=== PATIENT | female | born 1960 | race Caucasian/White ===

== ENCOUNTER → 2016-11-09 | Outpatient (CLI) | payer MEDICARE ==
[2014-12-24 10:57] VITALS: BP 102/69
[~2016-11-09] MED LIST: ALBU0.63 NEB; ALPR2TAB2 PO; ASCO100T4 PO; ASPI81TA44 PO; CHOL20002 PO; DOCU50CA6 PO; DOXY100T PO; DULO30CA2 PO; ESTR0.753 PO; ESTR0.9T PO; ESTR1TAB15 PO; FLUT1DIS3 IH; HYDR-2680 PO; IBUP800T19 PO; LEVO200T5 PO; LORA1TAB PO; MECO10002 PO; METO10TA81 PO; METO25TA4 PO; MIRT15TA PO; MIRT30TA PO; OMEG-33 PO; OMEP20TA8 PO; OXYB5TAB7 PO; PHEN37.598 PO; POTA10TA12 PO; PRAZ1CAP2 PO; PROM118S2 PO; SERT100T PO; SIMV20TA3 PO; SPIR1TAB PO; TIOT18CA IH; VARE1TAB21 PO
[2016-11-09 18:00] LABS: BASO # 0.1 x10^3/uL (0.0-0.2); BASO % 1 % (0-3); EOS # 0.1 x10^3/uL (0.0-0.7); EOS % 1 % (0-3); HEMATOCRIT 39.6 % (36.0-47.0); HEMOGLOBIN 13.3 g/dL (12.0-15.5); LYMPH % 23 % (24-48); MEAN CORPUSCULAR HEMOGLOBIN 30 pg (25-35); MEAN CORPUSCULAR HGB CONC 34 g/dL (31-37); MEAN CORPUSCULAR VOLUME 90 fL (79-100); MONO # 0.9 x10^3/uL (0.0-1.1); MONO % 11 % (0-9); NEUT # 5.4 x10^3uL (1.8-7.7); NEUT % 64 % (31-73); PLATELET COUNT 279 x10^3/uL (140-400); RED CELL DISTRIBUTION WIDTH 12.9 % (11.5-14.5); WHITE BLOOD COUNT 8.5 x10^3/uL (4.0-11.0)
[2016-11-09 18:03] LABS: CREATININE 0.8 mg/dL (0.6-1.0); GFR 73.9
== END | disposition home or self-care (01) ==
LOC: LAB 17:02
PROVIDERS: ATTEND Family Medicine
DX: R60.1 Generalized edema (principal)
CPT/HCPCS: 36415; 80048; 82550; 83880; 84484; 85027

== ENCOUNTER → 2016-12-04 | Outpatient (CLI) | payer MEDICARE ==
[2014-12-24 10:57] VITALS: BP 102/69
[2016-12-04 16:17] LABS: CALCIUM 8.4 mg/dL (8.5-10.1); CREATININE 0.9 mg/dL (0.6-1.0); GFR 64.5; MAGNESIUM 1.6 mg/dL (1.8-2.4); POTASSIUM 3.7 mmol/L (3.5-5.1)
== END | disposition home or self-care (01) ==
LOC: LAB 15:37
PROVIDERS: ATTEND Nurse Practitioner
DX: R60.0 Localized edema (principal)
CPT/HCPCS: 36415; 80048; 83735; 83880

== ENCOUNTER 2018-07-16 06:24 | Emergency (ER) | payer MEDICARE ==
[~2018-07-16] VITALS: Ht 157.5 cm; Wt 92.5 kg
[~2018-07-16 06:24] MED LIST changes: -ASPI81TA44 PO; +ASPI81TA59 PO; +LORA-254 PO; -LORA1TAB PO; -PROM118S2 PO; +PROM118S5 PO
--- NOTE | 2018-07-16 07:06 | PHYS DOC ---
Past History Past Medical History: A-Fib, Anemia, Arthritis, COPD, CVA, Depression, Fibromyalgia, Hypertension, Other Past Surgical History: Appendectomy, Cholecystectomy, Hysterectomy, Other Alcohol Use: None Drug Use: None Adult General Chief Complaint Chief Complaint: FEVER HPI HPI 57-year-old female presents with fever. The patient had a spider bite in early June and was diagnosed with MSSA. She has been giving Ancef every 8 hours by IV infusion her PICC line. She presents this morning because she had a fever of 104 at home. This is the 4th day she noticed she was feeling more feverish. She does have a cough. She denies shortness of breath. She has generalized aches and chills. She has not taken anything for the fever since yesterday when she took Tylenol. Patient has a history of COPD. She takes breathing treatments 4 times a day. Review of Systems Review of Systems Constitutional: Fever and chills[] Eyes: Denies change in visual acuity, redness, or eye pain [] HENT: Denies nasal congestion or sore throat [] Respiratory: Cough without shortness of breath [] Cardiovascular: No additional information not addressed in HPI [] GI: Denies abdominal pain, nausea, vomiting, bloody stools or diarrhea [] : Denies dysuria or hematuria [] Musculoskeletal: Denies back pain or joint pain [] Integument: Denies rash or skin lesions [] Neurologic: Denies headache, focal weakness or sensory changes [] Endocrine: Denies polyuria or polydipsia [] All other systems were reviewed and found to be within normal limits, except as documented in this note. Allergies Allergies Allergies Coded Allergies Type Severity Reaction Last Updated Verified latex Allergy Intermediate 12/22/14 Yes pregabalin Allergy Mild swelling 10/16/13 Yes Physical Exam Physical Exam Constitutional: Well developed, well nourished, no acute distress, non-toxic appearance. [] HENT: Normocephalic, atraumatic, bilateral external ears normal, oropharynx moist, no oral exudates, nose normal. [] Eyes: PERRLA, EOMI, conjunctiva normal, no discharge. [] Neck: Normal range of motion, no tenderness, supple, no stridor. [] Cardiovascular:Heart rate regular rhythm, no murmur [] Lungs & Thorax: Bilateral breath sounds clear to auscultation but diminished[] Abdomen: Bowel sounds normal, soft, no tenderness, no masses, no pulsatile masses. [] Skin: Warm, dry, no erythema, no rash. [] Back: No tenderness, no CVA tenderness. [] Extremities: PICC in the right arm[] Neurologic: Alert and oriented X 3, normal motor function, normal sensory function, no focal deficits noted. [] Psychologic: Affect normal, judgement normal, mood normal. [] Current Patient Data Vital Signs Vital Signs Date Time Temp Pulse Resp B/P (MAP) Pulse Ox O2 Delivery O2 Flow Rate FiO2 07/16/18 06:30 101.0 73 20 94 Room Air EKG EKG Sinus tachycardia, rate 113, normal axis, no ST elevations or depressions.[] Radiology/Procedures Radiology/Procedures [] Impressions: Chest, 2 views, 07/16/2018: HISTORY: Fever, cough, sepsis Comparison is made to a study from 10/16/2013. A right PICC extends into the superior vena cava. The heart size and pulmonary vascularity are normal. No pulmonary infiltrate is seen. There is no evidence of pleural fluid. IMPRESSION: 1. The right PICC is in satisfactory position. 2. No acute cardiopulmonary abnormality is detected. Electronically signed by: Miguel Galloway MD (07/16/2018 7:37 AM) [facility] DICTATED AND SIGNED BY: MIGUEL GALLOWAY MD DATE: 07/16/18 0738 CC: LAURE WADE DO; CELIA WILKS MD Course & Med Decision Making Course & Med Decision Making Pertinent Labs and Imaging studies reviewed. (See chart for details) The patient is tachycardic at 115, she has a fever of 103, and is already on antibiotics for skin infection. She meets sepsis criteria. We will give her 30 mL/kg of normal saline, order to do blood cultures, and place her on vancomycin and Zosyn. The patient's white count is 2.1. Hemoglobin 9.2 I discussed these results with the patient and she is not on chemotherapy. She is not an IV drug user. She has not been told she has a low white count in the past. She has not been anemic in the past. Review of her chart shows some white counts that are low normal, not less than 4. Her hemoglobin has not been this low before. Her chest x-ray does not show pneumonia. Her influenza was negative. The patient has been on the Ancef for more than 20 days. Urinalysis is pending. At this point, I am assuming the skin infection developed resistance to the Ancef, though another source of infection is not excluded. The patient tells me that she did have a couple of teeth removed within the last 1 month. EKG shows sinus tachycardia Discussed the patient with Dr. Villasenor and he would like the patient transferred to [facility] and admitted under his name. The patient is in agreement with this plan. She will go by ambulance. Greater than 35 minutes of critical care time was spent on this patient exclusive of other billable procedures. [] Dragon Disclaimer Dragon Disclaimer This electronic medical record was generated, in whole or in part, using a voice recognition dictation system. Departure Departure: Impression: Primary Impression: Sepsis Additional Impression: Skin infection Disposition: XFER SHT-TRM HOSP Condition: GUARDED Referrals: CELIA WILKS MD (PCP) Problem Qualifiers Primary Impression: Sepsis Sepsis type: methicillin resistant Staphylococcus aureus Qualified Codes: A41.02 - Sepsis due to methicillin resistant Staphylococcus aureus LAURE WADE DO Jul 16, 2018 07:06
[2018-07-16 07:27] LABS: BASO % 1 % (0-3); EOS % 0 % (0-3); HEMATOCRIT 27.8 % (36.0-47.0); HEMOGLOBIN 9.2 g/dL (12.0-15.5); LYMPH # 0.4 x10^3/uL (1.0-4.8); LYMPH % 20 % (24-48); MEAN CORPUSCULAR HEMOGLOBIN 29 pg (25-35); MEAN CORPUSCULAR HGB CONC 33 g/dL (31-37); MEAN CORPUSCULAR VOLUME 87 fL (79-100); MONO # 0.2 x10^3/uL (0.0-1.1); MONO % 10 % (0-9); NEUT # 1.4 x10^3uL (1.8-7.7); NEUT % 69 % (31-73); PLATELET COUNT 205 x10^3/uL (140-400); RED BLOOD COUNT 3.19 x10^6/uL (3.50-5.40); RED CELL DISTRIBUTION WIDTH 13.5 % (11.5-14.5); WHITE BLOOD COUNT 2.1 x10^3/uL (4.0-11.0)
[2018-07-16] MEDS ORDERED: ACETAMINOPHEN 500 MG TABLET PO ONE (07:30)
[2018-07-16 07:40] LABS: ALBUMIN 3.1 g/dL (3.4-5.0); ALBUMIN/GLOBULIN RATIO 0.8 (1.0-1.7); CALCIUM 9.4 mg/dL (8.5-10.1); CREATININE 0.8 mg/dL (0.6-1.0); GFR 73.7; POTASSIUM 3.2 mmol/L (3.5-5.1); TOTAL BILIRUBIN 0.2 mg/dL (0.2-1.0); TOTAL PROTEIN 7.2 g/dL (6.4-8.2)
--- NOTE | 2018-07-16 07:40 | RAD ---
Chest, 2 views, 07/16/2018: HISTORY: Fever, cough, sepsis Comparison is made to a study from 10/16/2013. A right PICC extends into the superior vena cava. The heart size and pulmonary vascularity are normal. No pulmonary infiltrate is seen. There is no evidence of pleural fluid. IMPRESSION: 1. The right PICC is in satisfactory position. 2. No acute cardiopulmonary abnormality is detected. Electronically signed by: Miguel Hardy MD (07/16/2018 7:37 AM) [facility]
[2018-07-16 07:44] LABS: INFLUENZA A PATIENT NEGATIVE (NEGATIVE)
[2018-07-16 07:45] LABS: INFLUENZA B PATIENT NEGATIVE (NEGATIVE)
[2018-07-16] MEDS: IV NORMAL SALINE 1,000ML 1,500 ML IV SCH ×2 (07:59→08:56)
[2018-07-16 08:19] LABS: % BANDS 26 % (0-9); % BASOS 0 % (0-3); % EOS 0 % (0-5); % LYMPHS 23 % (24-48); % MONOS 6 % (0-10); % SEGS 45 % (35-66); HYPOCHROMIA SLIGHT; PLT ESTIMATE ADEQUATE (ADEQUATE); STOMATOCYTES OCC
[2018-07-16] MEDS ORDERED: PIPERACILLIN/TAZOBACTAM 4.5 GM in IV NORMAL SALINE 50ML 50 ML IV ONE (08:50)
[2018-07-16] MEDS ORDERED: PIPERACILLIN/TAZOBACTAM 4.5 GM VIAL IV ONE (08:51)
[2018-07-16] MEDS ORDERED: IV NORMAL SALINE 50ML 50 ML ONE (08:51)
[2018-07-16] MEDS ORDERED: VANCOMYCIN 2 GM in IV NORMAL SALINE 500ML 500 ML IV ONE (09:00)
[2018-07-16 09:20] VITALS: BP 122/66
[2018-07-16 10:09] LABS: BACTERIA,URINE 0 /HPF (0-FEW); BILIRUBIN,URINE NEG (NEG); CLARITY,URINE CLEAR; COLOR,URINE YELLOW; GLUCOSE,URINE NEG (NEG); NITRITE,URINE NEG (NEG); SQUAMOUS EPITHELIAL CELL,UR OCC /LPF; UROBILINOGEN,URINE 0.2 mg/dL (0.2 mg/dL); WBC,URINE RARE /HPF (0-4)
--- NOTE | 2018-07-16 11:03 | EKG ---
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
== END 2018-07-16 10:30 | disposition short-term general hospital (02) ==
LOC: ER 06:24
DX: A41.02 Sepsis due to Methicillin resistant Staphylococcus aureus (principal); L08.89 Other specified local infections of the skin and subcutaneous tissue; I48.91 Unspecified atrial fibrillation; J44.9 Chronic obstructive pulmonary disease, unspecified; F32.9 Major depressive disorder, single episode, unspecified; M79.7 Fibromyalgia; I10 Essential (primary) hypertension; Z86.73 Personal history of transient ischemic attack (TIA), and cerebral infarction without residual deficits; Z86.2 Personal history of diseases of the blood and blood-forming organs and certain disorders involving the immune mechanism; Z91.040 Latex allergy status; Z88.8 Allergy status to other drugs, medicaments and biological substances
CPT/HCPCS: 36415; 71046; 80053; 81001; 85007; 85025; 87040; 87804; 93005; 96365; 96368; 99291; J2543; J3370; J7040; J7030

== ENCOUNTER → 2018-07-24 | Outpatient (CLI) | payer MEDICARE ==
[2018-07-24 17:36] VITALS: BP 106/74
--- NOTE | 2018-07-24 17:38 | NUR ---
Patient here for PICC line removal and ambulated to room 117 from registration accompanied by family. Vital signs assessed and PICC line removed. Pt tolerated well and pressure dressing applied. Patient ambulated from the unit.
== END | disposition home or self-care (01) ==
LOC: OPINF 17:04
PROVIDERS: ATTEND Nurse Practitioner Family
DX: Z45.2 Encounter for adjustment and management of vascular access device (principal); J44.9 Chronic obstructive pulmonary disease, unspecified; I10 Essential (primary) hypertension; F32.9 Major depressive disorder, single episode, unspecified; I48.91 Unspecified atrial fibrillation; M79.7 Fibromyalgia; Z86.73 Personal history of transient ischemic attack (TIA), and cerebral infarction without residual deficits; Z86.2 Personal history of diseases of the blood and blood-forming organs and certain disorders involving the immune mechanism
CPT/HCPCS: 99211